=== PATIENT | female | born 1975 | race American Indian/Alaskan Native ===

== ENCOUNTER 2018-03-01 15:51 | Emergency (ER) | payer SELFPAY ==
[2018-03-01 15:57] VITALS: BP 144/100
== END 2018-03-01 16:28 | disposition left against medical advice (07) ==
LOC: ED 15:51
DX: M25.569 Pain in unspecified knee (principal); Z53.21 Procedure and treatment not carried out due to patient leaving prior to being seen by health care provider

== ENCOUNTER 2018-12-13 16:05 | Emergency (ER) | payer OTHER ==
[2018-12-13 16:17] VITALS: BP 145/110
--- NOTE | 2018-12-13 16:18 | Emergency Department Report ---
Chief Complaint: Extremity Injury, Lower Stated Complaint: TOE INJURY Time Seen by Provider: 12/13/18 16:15 - HPI History of Present Illness: This is a 43 y.o. F. that presents to the ER with pain to left 1st digit. Patient states a treadmill fell on her toe while at work. Reports drainage from bump this morning. Applied peroxide and neosporin. PMH HTN - Exam Vital Signs: Vital Signs 12/13/18 16:15 Temperature 98.7 F Pulse Rate 89 Respiratory 20 Rate Blood Pressure 145/110 O2 Sat by Pulse 100 Oximetry MSE screening note: Focused history and physical exam performed. Due to findings the following was ordered: ED Disposition for MSE Condition: Stable
--- NOTE | 2018-12-13 17:30 | XRay Report ---
PROCEDURE: XR TOE(S) 2+V LT TECHNIQUE: Portable left great toe radiographs, including AP, oblique and lateral views. HISTORY: r/o fx 1st digit . Trauma. Pain. COMPARISONS: None . FINDINGS: Fracture (s) and/or Dislocation(s): None . Joint space(s): Minimal osteoarthritic change seen at the MTP joint of the great toe. Joint spaces o therwise well preserved. . Soft tissues: Normal . Bone mineralization: Normal . Foreign bodies: None . IMPRESSION: Minimal osteoarthritis otherwise negative Examination . This document is electronically signed by Watson Mera MD., Dec 13 2018 05:28:27 PM ET
[2018-12-13] MEDS ORDERED: NORCO 5/325 PO ONE (18:10)
--- NOTE | 2018-12-13 18:14 | Emergency Department Report ---
ED Back Pain/Injury HPI - General Chief Complaint: Extremity Injury, Lower Stated Complaint: TOE INJURY Time Seen by Provider: 12/13/18 16:15 Source: patient Limitations: No Limitations - History of Present Illness Initial Comments: pt to ER today with l great toe pain. she dropped item on it yesterday. today it is painful, swollen and abrased. pt is ambulatory. no other injury. bp noted elevated. no headache, no cp or sob. Similar Symptoms Previously: No Place: home Radiation: none Severity: mild Improves With: none Worsens With: movement Associated Symptoms: denies other symptoms - Related Data Previous Rx's Medication Instructions Recorded Last Taken Type Amoxicillin [Trimox CAP] 500 mg PO BID #20 capsule 12/13/18 Unknown Rx traMADol [Ultram] 50 mg PO Q6HR PRN #10 tablet 12/13/18 Unknown Rx Allergies Allergy/AdvReac Type Severity Reaction Status Date / Time No Known Allergies Allergy Verified 12/13/18 16:07 ED Review of Systems ROS: Stated complaint: TOE INJURY Other details as noted in HPI Comment: All other systems reviewed and negative ED Past Medical Hx - Past Medical History Medical history: no medical history Family history: no significant family history ED Back Pain Physical Exam - Exam General: Vital signs noted. No distress. Alert and acting appropriately. Back/Abdomen: No Abdominal Tenderness, No Perithoracic Tenderness, No Perilumbar Tenderness, No Sacroiliac Tenderness, No Flank Tenderness, No Straight Leg Raise Pain Neuro: Yes Normal Sensation, Yes Normal DTR's, Yes Normal Gait, No Motor Weakness ED Course Vital Signs 12/13/18 16:15 Temperature 98.7 F Pulse Rate 89 Respiratory 20 Rate Blood Pressure 145/110 O2 Sat by Pulse 100 Oximetry Ed Back Pain Tests - Tests Tests: Normal X Rays ED Medical Decision Making - Radiology Data Radiology results: report reviewed, image reviewed - Medical Decision Making xray neg broken skin with pain and swelling dc home with dc plan of care Vital Signs 12/13/18 16:15 Temperature 98.7 F Pulse Rate 89 Respiratory 20 Rate Blood Pressure 145/110 O2 Sat by Pulse 100 Oximetry - Differential Diagnosis ro fx Critical care attestation.: If time is entered above; I have spent that time in minutes in the direct care of this critically ill patient, excluding procedure time. ED Disposition Clinical Impression: Toe contusion, Cellulitis Disposition: [id number] TO HOME OR SELFCARE Is pt being admited?: No Does the pt Need Aspirin: No Condition: Stable Instructions: Contusion in Adults (ED) Additional Instructions: rest ice elevate motrin or tylenol for pain meds as ordered today follow up with pcp if pain persists monitor blood pressure Prescriptions: Amoxicillin [Trimox CAP] 500 mg PO BID #20 capsule traMADol [Ultram] 50 mg PO Q6HR PRN #10 tablet PRN Reason: Pain Referrals: ERMELINDA ADAM MD [Primary Care Provider] - 3-5 Days Time of Disposition: 18:12
== END 2018-12-13 18:51 | disposition home or self-care (01) ==
LOC: ED 16:05
DX: S90.112A Contusion of left great toe without damage to nail, initial encounter (principal); L03.032 Cellulitis of left toe; X58.XXXA Exposure to other specified factors, initial encounter; Y93.89 Activity, other specified; Y92.89 Other specified places as the place of occurrence of the external cause; Y99.8 Other external cause status
CPT/HCPCS: 99283